=== PATIENT | female | born 1985 | race Caucasian/White ===

== ENCOUNTER 2022-09-26 16:31 | Emergency (ER) | payer BC ==
[2022-09-26] MEDS ORDERED: Clindamycin HCl 150 MG Cap PO ONE (16:32)
[2022-09-26] MEDS ORDERED: Ondansetron 4 MG Tab.DIS PO ONE (16:32)
[2022-09-26] MEDS ORDERED: Lidocaine 1% with EPINEPHrine 1:100,000 20 ML MDV INJECT ONE (17:10)
[2022-09-26] MEDS ORDERED: Bacitracin Oint 1 GM U/D Packet TOP ONE (17:11)
[2022-09-26] MEDS ORDERED: Ondansetron 4 MG Tab.DIS ONE (18:35)
[2022-09-26] MEDS ORDERED: Clindamycin HCl 150 MG Cap ONE (18:36)
== END 2022-09-26 18:35 | disposition home or self-care (01) ==
LOC: DL.ED 16:31
DX: T17.928A Food in respiratory tract, part unspecified causing other injury, initial encounter (principal); S51.011A Laceration without foreign body of right elbow, initial encounter; S61.205A Unspecified open wound of left ring finger without damage to nail, initial encounter; J32.4 Chronic pansinusitis; R55 Syncope and collapse; E11.9 Type 2 diabetes mellitus without complications; E66.9 Obesity, unspecified; Z68.30 Body mass index [BMI] 30.0-30.9, adult; Z79.84 Long term (current) use of oral hypoglycemic drugs; Z88.2 Allergy status to sulfonamides; W18.09XA Striking against other object with subsequent fall, initial encounter
CPT/HCPCS: 12001; 70450; 70486; 71046; 73140; 99284; A9270